=== PATIENT | male | born 1975 | race Caucasian/White ===

== ENCOUNTER 2018-01-06 03:42 | Observation (INO) | payer MEDICAID ==
[~2018-01-06] VITALS: Ht 193 cm; Wt 68.2 kg
[2018-01-06 03:54] VITALS: BP 158/92; Ht 193 cm; Wt 68.2 kg
[2018-01-06] MEDS ORDERED: OMEPRAZOLE20 M1 PO (03:55)
[2018-01-06 04:58] LABS: BASOPHILS 0.1 % (0-2); EOSINOPHILS 0.5 % (0-7); HEMATOCRIT 47.3 % (42.0-54.0); HEMOGLOBIN 16.5 g/dL (13.5-17.5); IMMATURE GRANULOCYTES 0.2 % (0-5); LYMPHOCYTES 16.7 % (15-50); MCH 31.3 pg (26.0-34.0); MCHC 34.9 g/dL (31.0-37.0); MCV 89.6 fL (80.0-100.0); MEAN PLATELET VOLUME 9.8 fL (7.4-10.4); MONOCYTES 12.9 % (2-11); NEUTROPHILS 69.6 % (40-80); PLATELET COUNT 248 10x3/uL (130-400); RBC 5.28 10x6/uL (4.20-6.10); RDW 12.9 % (11.5-14.5); WBC 9.5 10x3/uL (4.8-10.8)
[2018-01-06 05:15] LABS: ALBUMIN 4.1 g/dL (3.4-5.0); ANION GAP 17.9 mmol/L (8-16); BILIRUBIN - TOTAL 0.8 mg/dL (0.2-1.3); CALCIUM 8.4 mg/dL (8.5-10.1); CARBON DIOXIDE 24.2 mmol/L (21.0-32.0); CREATININE - SERUM 2.5 mg/dL (0.6-1.3); POTASSIUM - SERUM 4.1 mmol/L (3.5-5.1); PROTEIN - SERUM 8.1 g/dL (6.4-8.2)
[2018-01-06 07:00] LABS: CKMB 5.2 U/L (0.0-3.6); CREATINE KINASE 1414 UL (21-232)
[2018-01-06 09:59] LABS: APPEARANCE HAZY (CLEAR); COLOR DY (YELLOW); SPECIFIC GRAVITY 1.025 (1.005-1.020)
[2018-01-06 10:00] LABS: BILIRUBIN NEGATIVE (NEGATIVE); GLUCOSE NEGATIVE (NEGATIVE); KETONE NEGATIVE (NEGATIVE); NITRITE NEGATIVE (NEGATIVE); PROTEIN 1+ mg/dL (NEGATIVE); UROBILINOGEN NORMAL (NORMAL)
[2018-01-06 10:02] LABS: UDS - AMPHET POSITIVE QUAL (NEGATIVE); UDS - BARB NEGATIVE QUAL (NEGATIVE); UDS - BENZO NEGATIVE QUAL (NEGATIVE); UDS - COCAINE NEGATIVE QUAL (NEGATIVE); UDS - OPIATE NEGATIVE QUAL (NEGATIVE); UDS - PCP NEGATIVE QUAL (NEGATIVE); UDS - THC NEGATIVE QUAL (NEGATIVE)
[2018-01-06 10:05] LABS: WAXY CAST RARE /lpf (NONE SEEN)
[2018-01-06 10:06] LABS: RED CELLS - URINE OCC /hpf (0-5)
[2018-01-06 10:07] LABS: EPITHELIAL CELLS OCC /hpf (0-5); WHITE CELLS - URINE 0-5 /hpf (0-5)
[2018-01-06 10:08] LABS: BACTERIA FEW /hpf (NONE SEEN); MUCUS <1+ /lpf (NONE SEEN)
[2018-01-06 10:09] LABS: SPERMATOZOA PRESENT /hpf (NONE SEEN)
== END 2018-01-06 11:51 | disposition left against medical advice (07) ==
LOC: D.ER 03:42 → D.EDHOLD 07:26 → OBSVTIME 07:26 → D.EDHOLD 11:51
PROVIDERS: Family Medicine
DX: M62.82 Rhabdomyolysis (principal); N17.9 Acute kidney failure, unspecified; F15.90 Other stimulant use, unspecified, uncomplicated; E86.0 Dehydration

== ENCOUNTER 2018-01-12 13:13 | Emergency (ER) | payer MEDICAID ==
[~2018-01-12] VITALS: Ht 193 cm; Wt 70.9 kg
[~2018-01-12 13:13] MED LIST: OMEPRAZOLE20 M1 PO
[2018-01-12 14:23] VITALS: Ht 193 cm; Wt 70.9 kg
[2018-01-12] MEDS ORDERED: HYDROCORTISONE30 G9 TOPICAL (18:19)
[2018-01-12] MEDS ORDERED: PREDNISONE20 MG PO (18:19)
[2018-01-12 19:19] VITALS: BP 125/80
== END 2018-01-12 19:20 | disposition home or self-care (01) ==
LOC: D.ER 13:13
DX: T14.8XXA Other injury of unspecified body region, initial encounter (principal); W57.XXXA Bitten or stung by nonvenomous insect and other nonvenomous arthropods, initial encounter; Y93.89 Activity, other specified; Y92.89 Other specified places as the place of occurrence of the external cause; F17.200 Nicotine dependence, unspecified, uncomplicated; Z59.0 Homelessness

== ENCOUNTER 2018-01-13 00:59 | Emergency (ER) | payer MEDICAID ==
[~2018-01-13] VITALS: Ht 193 cm; Wt 81.8 kg
[~2018-01-13 00:59] MED LIST changes: +HYDROCORTISONE30 G9 TOPICAL; +PREDNISONE20 MG PO
[2018-01-13 01:25] VITALS: BP 120/86; Ht 193 cm; Wt 81.8 kg
== END 2018-01-13 04:12 | disposition home or self-care (01) ==
LOC: D.ER 00:59
DX: F15.10 Other stimulant abuse, uncomplicated (principal); F17.200 Nicotine dependence, unspecified, uncomplicated